=== PATIENT | male | born 1970 | race Hispanic/Latino ===

== ENCOUNTER 2024-07-02 19:31 | Emergency (ER) | payer SELFPAY ==
[2024-07-02] MEDS ORDERED: IBUPROFEN 400 MG TAB ONE (19:53)
[2024-07-02] MEDS ORDERED: HYDROCODONE/APAP 5/325 MG TAB ONE (19:54)
--- NOTE | 2024-07-02 21:30 | RAD REPORT ---
EXAM: XR Knee Right 3 View HISTORY: [facility] MAIN contusion;Pain Bed Name: 5 COMPARISON: None TECHNIQUE: 3 views of the right knee were obtained. FINDINGS: Mild knee effusion is seen. There is no evidence of acute fracture or dislocation. Incident ally noted bilateral. No significant degenerative changes are seen. No soft tissue swelling or other soft tissue abnormality is present. IMPRESSION: Mild knee joint effusion. No evidence of acute osseous abnormality.
--- NOTE | 2024-07-02 21:37 | ER ---
Nurse's Notes [facility] Name: Derek Heard Age: 53 yrs Sex: Male : 1970 Arrival Date: 07/02/2024 Time: 19:31 Bed 5 Private MD: Diagnosis: Effusion, right knee;Contusion of right knee Presentation: 07/02 19:31 Chief complaint: Patient states: WAS WALKING AND HIT HIS RIGHT KNEE ON THE TABLE THIS jj7 MORNING. PAIN WASN'T TO BAD, BUT LATER TODAY WHILE AT A [employer]STITUTION PARTY AND RIGHT KNEE PAIN BECAME SEVERE. Coronavirus screen: At this time, the client does not indicate any symptoms associated with coronavirus-19. Ebola Screen: No symptoms or risks identified at this time. Initial Sepsis Screen: Does the patient meet any 2 criteria? No. Patient's initial sepsis screen is negative. Does the patient have a suspected source of infection? No. Patient's initial sepsis screen is negative. Risk Assessment: Do you want to hurt yourself or someone else? Patient reports no desire to harm self or others. Note TYLENOL. Onset of symptoms was July 02, 2024. 19:31 Method Of Arrival: EMS: [facility] jj7 19:31 Acuity: KARY 4 jj7 Triage Assessment: 19:31 General: Appears in no apparent distress. comfortable, Behavior is calm, cooperative, jj7 appropriate for age. Pain: Complains of pain in right knee Pain currently is 7 out of 10 on a pain scale. Historical: - Allergies: 19:47 No Known Allergies; jj7 - PMHx: 19:47 Diabetes mellitus; Hypertensive disorder; jj7 - Immunization history:: Client reports receiving the 2nd dose of the Covid vaccine, Flu vaccine is not up to date. - Infectious Disease History:: Denies. - Family history:: not pertinent. - Social history:: Patient/guardian denies using alcohol, street drugs, IV drugs, Smoking status: Patient denies any tobacco usage or history of. - Hospitalizations: : No recent hospitalization is reported. Screenin:31 [facility] ED Fall Risk Assessment (Adult) History of falling in the last 3 months, jj7 including since admission No falls in past 3 months (0 pts) Confusion or Disorientation No (0 pts) Intoxicated or Sedated No (0 pts) Impaired Gait No (0 pts) Mobility Assist Device Used No (0 pt) Altered Elimination No (0 pt) Score/Fall Risk Level 0 - 2 = Low Risk Oriented to surroundings, Maintained a safe environment, Educated pt \T\ family on fall prevention, incl call for assistance when getting out of bed, Assessed \T\ reinforced patient's understanding of fall precautions. Abuse screen: Denies threats or abuse. Nutritional screening: No deficits noted. Tuberculosis screening: No symptoms or risk factors identified. Assessment: 19:31 Reassessment: SEE TRIAGE ASSESSMENT. jj7 21:49 Reassessment: Patient appears in no apparent distress at this time. Patient and/or bm8 family updated on plan of care and expected duration. Pain level reassessed. Patient is alert, oriented x 3, equal unlabored respirations, skin warm/dry/pink. Patient states feeling better. Patient states symptoms have improved. Pain: Complains of pain in right leg Pain currently is 4 out of 10 on a pain scale. Vital Signs: 19:31 BP 157 / 97; Pulse 60; Resp 17; Temp 98.2; Pulse Ox 97% on R/A; Weight 86.18 kg; Height jj7 5 ft. 8 in. ; Pain 7/10; 20:00 BP 140 / 88; Pulse 68; Resp 17; Pulse Ox 99% ; jj7 21:00 BP 151 / 100; Pulse 57; Resp 16; Pulse Ox 99% ; jj7 21:49 BP 151 / 100; Pulse 57; Resp 17; Temp 98.2; Pulse Ox 100% ; Pain 4/10; bm8 19:31 Body Mass Index 28.89 (86.18 kg, 172.72 cm) j7 19:31 Pain Scale: Adult jj7 21:49 Pain Scale: Adult bm8 [place] Coma Score: 21:49 Eye Response: spontaneous(4). Motor Response: obeys commands(6). Verbal Response: bm8 oriented(5). Total: 15. ED Course: 19:31 Arm band placed on right wrist. Patient placed in an exam room, on a stretcher. j7 19:31 Patient has correct armband on for positive identification. Bed in low position. Call jj7 light in reach. Provided Education on: USE OF CALL NAPIER. 19:31 No provider procedures requiring assistance completed. Patient did not have IV access jj7 during this emergency room visit. 19:32 Patient arrived in ED. rn 19:32 Jamie Lake MD is Attending Physician. rn 19:47 Triage completed. jj7 20:53 XRAY Knee RIGHT 3 view In Process Unspecified. EDMS 21:20 eKnny Wilcox, RN is Primary Nurse. jj7 21:49 Crutch training done. Knee immobilizer applied on right knee. bm8 Administered Medications: 19:56 Drug: HYDROcodone-acetaminophen PO 5 mg-325 mg 1 tabs PO once Route: PO; jj7 21:49 Follow up: Response: No adverse reaction bm8 19:56 Drug: Ibuprofen PO 800 mg PO once Route: PO; jj7 21:48 Follow up: Response: No adverse reaction bm8 Medication: 19:31 VIS not applicable for this client. jj7 Outcome: 21:37 Discharge ordered by MD. rn 21:49 Discharged to home ambulatory, with crutches, bm8 21:49 Condition: stable 21:49 Discharge instructions given to patient, family, Instructed on discharge instructions, follow up and referral plans. no drinking with medication, no driving heavy equipment, medication usage, safety practices, crutch walking, Demonstrated understanding of instructions, follow-up care, medications, Prescriptions given X 1, 21:50 Patient left the ED. bm8 Signatures: Dispatcher [employer] EDMS Jaime Lake MD MD rn Johnson, Juwairiyah, RN RN jj7 Marco Rawls RN RN bm8
--- NOTE | 2024-07-02 21:37 | EDPHYS ---
Physician Documentation [facility] Name: Derek Heard Age: 53 yrs Sex: Male : 1970 Arrival Date: 07/02/2024 Time: 19:31 Bed 5 Private MD: ED Physician Jaime Lake HPI: 07/02 19:33 This 53 yrs old Male presents to ER via Unassigned with complaints of knee pain, injury.rn 19:33 The patient presents with pain, that is acute. The complaints affect the right knee. rn Onset: The symptoms/episode began/occurred today. Modifying factors: The symptoms are alleviated by nothing. the symptoms are aggravated by movement, weight bearing, bending knee. Severity of symptoms: At their worst the symptoms were moderate, in the emergency department the symptoms are unchanged. The patient has not experienced similar symptoms in the past. Patient reports walking earlier today when struck right knee onto the edge of a table. Was able to walk afterwards. Did not feel like it was broken. Later went to a alliance party and started having increased swelling and pain to the right knee. Not anticoagulated. No history of rheumatologic problems or gout. Isolated injury to the right knee, denies patellar pain reports pain just above patella. Historical: - Allergies: 19:47 No Known Allergies; jj7 - PMHx: 19:47 Diabetes mellitus; Hypertensive disorder; jj7 - Immunization history:: Client reports receiving the 2nd dose of the Covid vaccine, Flu vaccine is not up to date. - Infectious Disease History:: Denies. - Family history:: not pertinent. - Social history:: Patient/guardian denies using alcohol, street drugs, IV drugs, Smoking status: Patient denies any tobacco usage or history of. - Hospitalizations: : No recent hospitalization is reported. ROS: 19:33 Constitutional: Negative for fever, chills, and weight loss, MS/Extremity: Positive for rn pain and injury to the right knee Skin: Negative for injury, rash, and discoloration, Neuro: Negative for weakness Exam: 19:33 Constitutional: This is a well developed, well nourished patient who is awake, alert, rn and in no acute distress. MS/ Extremity: Mild suprapatellar knee effusion noted, no bony tenderness, no gross deformity. No open wounds. No warmth. Vital Signs: 19:31 BP 157 / 97; Pulse 60; Resp 17; Temp 98.2; Pulse Ox 97% on R/A; Weight 86.18 kg; Height jj7 5 ft. 8 in. ; Pain 7/10; 20:00 BP 140 / 88; Pulse 68; Resp 17; Pulse Ox 99% ; jj7 21:00 BP 151 / 100; Pulse 57; Resp 16; Pulse Ox 99% ; jj7 21:49 BP 151 / 100; Pulse 57; Resp 17; Temp 98.2; Pulse Ox 100% ; Pain 4/10; bm8 19:31 Body Mass Index 28.89 (86.18 kg, 172.72 cm) jj7 19:31 Pain Scale: Adult jj7 21:49 Pain Scale: Adult bm8 [place] Coma Score: 21:49 Eye Response: spontaneous(4). Motor Response: obeys commands(6). Verbal Response: bm8 oriented(5). Total: 15. MDM: 19:32 Medical Screening Exam initiated rn 21:36 Differential diagnosis: closed fracture, contusion, Knee effusion. Data reviewed: vital rn signs, nurses notes, radiologic studies, plain films, and as a result, I will discharge patient. Counseling: I had a detailed discussion with the patient and/or guardian regarding the historical points, exam findings, and any diagnostic results supporting the discharge/admit diagnosis, radiology results, the need for outpatient follow up, to return to the emergency department if symptoms worsen or persist or if there are any questions or concerns that arise at home. Special discussion: I discussed with the patient/guardian in detail that at this point there is no indication for admission to the hospital. It is understood, however, that if the symptoms persist or worsen the patient needs to return immediately for re-evaluation. 21:36 Independent interpretation of the following test(s) in the Emergency Department X-Ray: rn My interpretation is X-ray right knee images negative for fracture per my interpretation. 07/02 19:32 Order name: XRAY Knee RIGHT 3 view; Complete Time: 21:35 rn 07/02 19:32 Order name: Knee Immobilizer; Complete Time: 19:51 rn 07/02 21:40 Order name: Crutches; Complete Time: 21:48 rn Administered Medications: 19:56 Drug: HYDROcodone-acetaminophen PO 5 mg-325 mg 1 tabs PO once Route: PO; jj7 21:49 Follow up: Response: No adverse reaction bm8 19:56 Drug: Ibuprofen PO 800 mg PO once Route: PO; jj7 21:48 Follow up: Response: No adverse reaction bm8 Disposition Summary: 07/02/24 21:37 Discharge Ordered Notes: Location: Home rn Problem: new rn Symptoms: have improved rn Condition: Stable rn Diagnosis - Effusion, right knee rn - Contusion of right knee rn Followup: rn - With: Private Physician - When: As needed - Reason: Recheck today's complaints, Re-evaluation by your physician Discharge Instructions: - Discharge Summary Sheet rn - Contusion rn - Knee Effusion rn - How to Use a Knee Immobilizer rn Forms: - Medication Reconciliation Form rn - Antibiotic rn hemodialysis - Prescription Opioid Use rn - Patient Portal Instructions rn - Leadership Thank You Letter rn - Work release form lg3 Prescriptions: - Tramadol 50 mg Oral Tablet - take 1 tablet ORAL route every 8 hours as needed; 12 tablet; Refills: 0, rn Product Selection Permitted Signatures: Dispatcher [employer] Jaime Tellez MD MD rn Johnson, Juwairiyah, RN RN jj7 Marco Rawls RN bm8
[2024-07-03 10:14] VITALS: TEMP 98.2
[2024-07-03 10:16] VITALS: BP 151/100
[2024-07-03 10:17] VITALS: O2SAT 100
== END 2024-07-02 21:50 | disposition home or self-care (01) ==
LOC: ER 19:31
DX: M25.461 Effusion, right knee (principal)
CPT/HCPCS: 99284